=== PATIENT | male | born 1995 | race African-American/Black ===

== ENCOUNTER 2019-12-14 08:17 | Day surgery (SDC) | payer OTHER ==
[~2019-12-14] VITALS: Ht 170.2 cm; Wt 70.8 kg
[2019-12-14 08:24] VITALS: BP 140/67
[2019-12-14] MEDS ORDERED: DEXT 5% / NACL 0.9% 500 ML IV ONE (08:45)
--- NOTE | 2019-12-14 08:51 | NUR ---
PT CHECK IN FOR PREOP FOR ABSCESS ON BILATERAL AXILLA TO BE DONE BY DR SAUCEDO TODAY AT 1030. PT C/O BL AXILLARY PAIN 04/13
[2019-12-14 09:29] LABS: ANION GAP 19.5 (8-16); CARBON DIOXIDE 21.2 mmol/L (21-32); CREATININE 0.9 mg/dL (0.6-1.3); POTASSIUM 4.7 mmol/L (3.5-5.1)
[2019-12-14 09:38] LABS: BASOPHILS % (AUTO) 0.2 % (0.0-2.0); EOSINOPHILS % (AUTO) 0.2 % (0.0-4.0); HEMATOCRIT 43.2 % (36-52); HEMOGLOBIN 13.7 g/dL (12.0-18.0); LYMPHOCYTES # (AUTO) 1.8 K/uL (2.0-11.5); LYMPHOCYTES % (AUTO) 10.3 % (20.5-51.1); MEAN CORPUSCULAR HEMOGLOBIN 25 pg (27-31); MEAN CORPUSCULAR HGB CONC 32 g/dL (33-37); MEAN CORPUSCULAR VOLUME 77.2 fL (80-94); MONOCYTES # (AUTO) 1.1 K/uL (0.8-1.0); MONOCYTES % (AUTO) 6.2 % (1.7-9.3); NEUTROPHILS # (AUTO) 14.5 K/uL (1.8-7.7); NEUTROPHILS % (AUTO) 83.1 % (42.2-75.2); PLATELET COUNT (AUTO) 432 K/uL (140-450); RED CELL DISTRIBUTION WIDTH 14.3 % (11.6-13.7); WHITE BLOOD COUNT (AUTO) 17.4 K/uL (4.8-10.8)
--- NOTE | 2019-12-14 10:00 | NUR ---
RECEIVED PATIENT FROM ED NURSE VIA WHEELCHAIR. PATIENT AMBULATED TO THE ROOM. AAOX4. RESPIRATIONS EVEN AND UNLABORED, ROOM AIR. VISIBLE CHEST RISE NOTED. NO CHEST PAIN. ABDOMEN FLAT AND NONTENDER. SKIN WARM, DRY, BILAT AXILLARY ABSCESS. PATIENT IS SCHEDULED FOR I&D LATER TODAY. IV IN THE RIGHT AC G20, SALINE LOCK. PATIENT IS AMBULATORY. DENIES PAIN. BED IN LOW POSITION. CALL LIGHT IS WITHIN REACH. WILL CONTINUE TO MONITOR
[2019-12-14 10:04] LABS: PROTHROMBIN TIME 10.6 secs (10.8-13.4)
--- NOTE | 2019-12-14 10:07 | NUR ---
Patient will be admitted to care of Dr SAUCEDO. Admited to [facility] room 105b. Belongings list completed. Report to LARA Servin.
[2019-12-14] MEDS: PIPERACILLIN/TAZOBACTAM 4.5 GM in DEXTROSE 5% 100 ML IV SCH ×3 (12:22→23:30)
--- NOTE | 2019-12-14 12:22 | NUR ---
RAGHU HANNA VIA IVPB. EXPLAINED TO PATIENT MED. PATIENT VERBALIZED UNDERSTANDING. WILL CONTINUE TO MONITOR
[2019-12-14 12:36] VITALS: BP 124/79
--- NOTE | 2019-12-14 12:50 | NUR ---
PATIENT IS OFF UNIT FOR SCHEDULED I&D
[2019-12-14] MEDS ORDERED: BUPIVACAINE-MPF/EPI 0.25% 30 ML VIAL INJ ONE (13:22)
[2019-12-14] MEDS ORDERED: ONDANSETRON 4 MG/2 ML VIAL ONE (13:28)
[2019-12-14] MEDS ORDERED: KETOROLAC 30 MG/ML VIAL ONE (13:28)
[2019-12-14] MEDS ORDERED: PROPOFOL 200 MG/20 ML VIAL IV ONE (13:28)
[2019-12-14] MEDS ORDERED: HYDROmorphone PFS 2 MG/ML SYR ONE (13:28)
[2019-12-14] MEDS ORDERED: HYDROGEN PEROXIDE 3% 240 ML BTL TP ONE (14:09)
--- NOTE | 2019-12-14 15:45 | NUR ---
PATIENT IS BACK FROM OR POST I&D. PATIENT HAS BANDAGES IN BILAT AXILLARY AND BUTTOCKS AREA.
--- NOTE | 2019-12-14 15:47 | NUR ---
OR NURSE GAVE PATIENT WATER BECAUSE PATIENT STATED HE'S SO THIRSTY.
--- NOTE | 2019-12-14 16:10 | NUR ---
PATIENT IS VOMITING CLEAR LIQ. EDUCATED PATIENT TO NOT DRINK ANY MORE WATER. EDUCATED TO STAY UPRIGHT.
--- NOTE | 2019-12-14 16:48 | NUR ---
PATIENT VOMITED CLEAR LIQ 100 ML.
--- NOTE | 2019-12-14 16:50 | NUR ---
CHANGED PATIENT'S GOWN BECAUSE IT GOT WET WHEN HE VOMITED.
--- NOTE | 2019-12-14 18:04 | NUR ---
HANG ZOSYN VIA IVPB. EXPLAINED TO PATIENT MED AND SIDE EFFECTS. PATIENT VERBALIZED UNDERSTANDING. BED IN LOW POSITION. CALL LIGHT WITHIN REACH.
--- NOTE | 2019-12-14 18:07 | NUR ---
PAGED DR. SAUCEDO TO GET AN ORDER FOR ANTI-EMETIC. NO RESPONSE. WILL TRY AGAIN
--- NOTE | 2019-12-14 18:19 | NUR ---
PAGED DR. SAUCEDO. WILL WAIT FOR CALL BACK
[2019-12-14] MEDS ORDERED: ONDANSETRON 4 MG/2 ML VIAL IVP PRN ×2 (18:25)
[2019-12-14] MEDS ORDERED: ACETAMINOPHEN 325 MG TAB PO PRN (18:25)
[2019-12-14] MEDS ORDERED: MORPHINE SULFATE 2 MG/ML SYR IVP PRN (18:25)
[2019-12-14] MEDS ORDERED: HYDROmorphone 1 MG/ML AMP IVP PRN (18:25)
[2019-12-14] MEDS ORDERED: HYDROcodone/APAP 5/325 MG 1 TAB TAB PO PRN (18:25)
[2019-12-14] MEDS ORDERED: MORPHINE SULFATE 4 MG/ML SYR IV PRN (18:25)
--- NOTE | 2019-12-14 18:27 | NUR ---
DR. SAUCEDO MADE A TELEPHONE ORDER FOR ZOFRAN 4MG Q6H FOR N/V.
--- NOTE | 2019-12-14 18:46 | NUR ---
GIVEN ZOFRAN VIA IVPB. EXPLAINED TO PATIENT MED AND SIDE EFFECTS. PATIENT VERBALIZED UNDERSTANDING. BED IN LOW POSTION. CALL LIGHT IS WITHIN REACH.
--- NOTE | 2019-12-14 19:17 | NUR ---
ENDORSED PATIENT TO PERSONAL ASSISTANT NURSE CONTINUITY OF CARE. PATIENT IS STABLE CONDITION.
--- NOTE | 2019-12-14 19:30 | NUR ---
RECEIVED PATIENT AWAKE AND ALERT IN BED. NO C/O NAUSEA OR PAIN AT THIS TIME. DRESSING NOTED TO BILATERAL AXILLA. NO BLEEDING NOTED AT THIS TIME. BED LOWERED WITH CALL LIGHT WITHIN REACH. WILL CONTINUE TO MONITOR
[2019-12-15] VITALS: BP 121/73
--- NOTE | 2019-12-15 00:33 | NUR ---
PATIENT ASLEEP IN BED AT THIS TIME. NO S/S OF DISTRESS NOTED
[2019-12-15] MEDS: PIPERACILLIN/TAZOBACTAM 4.5 GM in DEXTROSE 5% 100 ML IV SCH ×3 (05:10→18:14)
--- NOTE | 2019-12-15 07:15 | NUR ---
RECEIVED REPORT FROM NUCLEAR SCIENTIST NURSE AT BEDSIDE FOR CONTINUITY OF CARE. PATIENT AWAKE AND ALERT, RESPIRATIONS EVEN AND UNLABORED ON ROOM AIR, PATIENT LAST MEDICATED FOR PAIN At 0630. UPDATED BOARD. UPDATED PATIENT WITH PLAN OF CARE. HE VERBALIZED UNDERSTANDING. IV SITE INTACT, PATENT, ASYMPTOMATIC, INFUSING IVF WELL. DRESSING ON BILATERAL AXILLARY INTACT, DRY AND CLEAN. CALL LIGHT WITHIN REACH, WILL CONTINUE TO MONITOR PATIENT.
[2019-12-15 08:00] VITALS: BP 133/71
--- NOTE | 2019-12-15 08:45 | NUR ---
PATIENT FINISHED WITH BREAKFAST. PATIENT HAD QUESTIONS ABOUT DISCHARGE AND INQUIRE ABOUT POSSIBILITY OF HOME HEALTH. WILL FORWARD PATIENTS CONCERN TO CASE MANAGEMENT.
[2019-12-15 12:02] LABS: BASOPHILS % (AUTO) 0.1 % (0.0-2.0); EOSINOPHILS % (AUTO) 0.1 % (0.0-4.0); HEMATOCRIT 35.9 % (36-52); HEMOGLOBIN 11.5 g/dL (12.0-18.0); LYMPHOCYTES # (AUTO) 0.4 K/uL (2.0-11.5); LYMPHOCYTES % (AUTO) 2.4 % (20.5-51.1); MEAN CORPUSCULAR HEMOGLOBIN 24 pg (27-31); MEAN CORPUSCULAR HGB CONC 32 g/dL (33-37); MEAN CORPUSCULAR VOLUME 76.2 fL (80-94); MONOCYTES # (AUTO) 1.2 K/uL (0.8-1.0); NEUTROPHILS # (AUTO) 15.5 K/uL (1.8-7.7); NEUTROPHILS % (AUTO) 90.4 % (42.2-75.2); PLATELET COUNT (AUTO) 350 K/uL (140-450); RED BLOOD CELL COUNT(AUTO) 4.71 MIL/uL (4.20-6.10); RED CELL DISTRIBUTION WIDTH 14.2 % (11.6-13.7); WHITE BLOOD COUNT (AUTO) 17.1 K/uL (4.8-10.8)
--- NOTE | 2019-12-15 13:54 | NUR ---
WOUND CARE GIVEN ORDERED BY DR. SAUCEDO. BERTOID PRN GIVEN TO PATIENT FOR WOUND CARE. PATIENT TOLERATING IT.
--- NOTE | 2019-12-15 14:42 | NUR ---
DISCHARGE PLANNING: RECEIVED AN ORDER FOR HOME HEALTH FOR WOUND CARE. MET WITH THE PATIENT AT THE BEDSIDE TO DISCUSS DC PLANNING AND IS IN AGREEMENT. RADHAMES OF [facility] MADE AWARE. SHE STATED SHE WILL CALL ME BACK FOR AN AUTH. REFERRAL SENT TO [facility]. Addendum: 12/15/19 at 1454 by Cinthia Mckee CM REFERRAL SENT TO [facility] Addendum: 12/15/19 at 1533 by Cinthia Mckee PER MARTY OF [facility] THEY ARE NOT ABLE TO ACCEPT THE PATIENT BECAUSE THEY DO NOT HAVE THE NURSE WHO GOES TO THE PATIENT'S ADDRESS. PER JOVON OF [facility], THEY ARE ABLE TO TAKE THE PATIENT. RADHAMES CORRALES [facility] MADE AWARE. PRIMARY RN MADE AWARE. Addendum: 12/15/19 at 1538 by Cinthia Mckee CM PATIENT MADE AWARE AND IS IN AGREEMENT.
--- NOTE | 2019-12-15 15:14 | NUR ---
PATIENT HAS BEEN SCREENED AND CATEGORIZED LOW NUTRITION RISK. PATIENT WILL BE SEEN WITHIN 7 DAYS OF ADMISSION. 12/21/[address]
--- NOTE | 2019-12-15 15:40 | NUR ---
Paged Dr. Garcia to inquire about pain medication for patient after discharge. Waiting for his call back. Call Patient's father Merlin Figueroa II at [phone] to inform him about patient's pending discharge. Will call back to update him about discharge time. He verbalized understanding. Patient aware.
[2019-12-15 16:00] VITALS: BP 130/79
--- NOTE | 2019-12-15 16:46 | NUR ---
PAGED DR SAUCEDO TO FOLLOW UP WITH LAST PHONE CALL ABOUT PATIENT'S POSSIBLE PRESCRIPTION. WILL WAIT FOR HIS CALL BACK.
--- NOTE | 2019-12-15 17:05 | NUR ---
CALLED DR. SAUCEDO [phone]. LEFT VOICEMAIL, WAITING FOR HIS CALL BACK.
--- NOTE | 2019-12-15 18:30 | NUR ---
PATIENT REFUSED FLU VACCINE. EDUCATED PATIENT ABOUT BENEFITS, HE REITERATE HIS REFUSAL.
--- NOTE | 2019-12-15 19:00 | NUR ---
DR SAUCEDO ON THE FLOOR, PRESCRIPTION FOR PAIN AND ANTIBIOTICS GIVEN. PATIENT AWARE.
[2019-12-15] MEDS ORDERED: ACET-5629 PO (19:02)
[2019-12-15] MEDS ORDERED: CIPR500T4 PO (19:04)
--- NOTE | 2019-12-15 19:05 | NUR ---
DISCHARGE INSTRUCTION AND EDUCATION GIVEN TO PATIENT. PATIENT VERBALIZED UNDERSTANDING ABOUT HOME HEALTH RN VISITATION FOR WOUND CARE. PATIENT VERBALIZED UNDERSTANDING ABOUT PAIN MEDICATIONS AND ANTIBIOTICS AND WILL TAKE ALL MEDICATIONS PRESCRIBED. PATIENT INFORMED TO FOLLOW UP WITH PCP AND DR. SAUCEDO, WILL CALL FOR APPOINTMENT. FATHER AT BEDSIDE. PATIENT STILL CURRENTLY RECEIVING IV ANTIBIOTICS, WILL BE DISCHARGE AFTER ANTIBIOTICS FINISHES. WILL ENDORSE TO PRE BILLING SPECIALIST NURSE.
--- NOTE | 2019-12-15 19:05 | NUR ---
RECEIVED BEDSIDE REPORT FROM DAY SHIFT NURSE. PATIENT IS AWAKE, ALERT, AND COOPERATIVE. RESPIRATION EVEN UNLABORED ON ROOM AIR. FAMILY MEMBER AT BEDSIDE. SKIN IS WARM AND DRY. IV PATENT AND INTACT. PLAN OF CARE WAS DISCUSSED. ALL SAFETY MEASURES IN PLACE. BED IS AT LOW POSITION. CALL LIGHT WITHIN REACH AND VERBALIZES ITS USE. WILL CONTINUE TO MONITOR.
--- NOTE | 2019-12-15 19:30 | NUR ---
REPORT GIVEN TO HANDBAG OPERATOR NURSE AT BEDSIDE FOR CONTINUITY OF CARE. ENDORSED DISCHARGE TO HANDBAG OPERATOR RN. PATIENT IN STABLE CONDITION. FATHER AT BEDSIDE.
--- NOTE | 2019-12-15 20:15 | NUR ---
PROVIDED PATIENT WOUND CARE SUPPLIES AND EDUCATED ON HOW TO DO DRESSING CHANGE. PATIENT VERBALIZES UNDERSTANDING. WILL CONTINUE TO MONITOR.
--- NOTE | 2019-12-15 20:30 | NUR ---
ALL PAPER WORKS WAS SIGNED. AWAITING FOR THE IV ANTIBIOTIC TO BE DONE. WILL CONTINUE TO MONITOR
--- NOTE | 2019-12-15 20:45 | NUR ---
EDUCATED PT ON DISEASE PROCESS, MEDICATION, SIGN AND SYMPTOMS, AND WHEN TO GO TO ER. EDUCATED ON THE IMPORTANCE TO FOLLOW UP WITH PCP. REMOVED IV.
--- NOTE | 2019-12-15 20:55 | NUR ---
PATIENT LEFT THE FACILITY IN STABLE CONDITION WITH A FAMILY MEMBER HEADING TO HOME.
== END 2019-12-15 20:55 | disposition home or self-care (01) ==
LOC: MED 08:17 → MDS 09:08 → MTU 09:08 → MDS 12-15 20:55
PROVIDERS: ATTEND Surgery
DX: L73.2 Hidradenitis suppurativa (principal); L02.412 Cutaneous abscess of left axilla; L02.411 Cutaneous abscess of right axilla; E11.9 Type 2 diabetes mellitus without complications; Z79.01 Long term (current) use of anticoagulants; L72.0 Epidermal cyst
CPT/HCPCS: 11450; 36415; 80048; 85025; 85610; 86886; 86900; 86901; 87070; 87081; 87186; 88304; 93005; J1170; J1885; J2270; J2405; J2543; J2704; J3490; J7030; J7060; 87075; 87205

== ENCOUNTER 2019-12-16 19:15 | Emergency (ER) | payer OTHER ==
[~2019-12-16] VITALS: Ht 170.2 cm; Wt 72.6 kg
[~2019-12-16 19:15] MED LIST: ACET-5629 PO; CIPR500T4 PO
[2019-12-16 19:25] VITALS: BP 112/73
--- NOTE | 2019-12-16 21:17 | NUR ---
PT TAKEN TO BED 9
--- NOTE | 2019-12-16 21:42 | NUR ---
PT BIB SELF FOR WOUND CHECK. PT WAS D/C'S FROM [facility] YESTERDAY, PT HAS SURGICAL WOUNDS TO LT AND RT AXILARY FOR REMOVAL OF INFECTION. PT STATES HE NEEDS WOUNDS PACKED Q24 HOURS, HOME HEALTH NURSE UNABLE TO MAKE IT TO HIS HOUSE EVERYDAY.
--- NOTE | 2019-12-16 21:51 | NUR ---
PA SARAHI WITH PT
--- NOTE | 2019-12-16 22:35 | NUR ---
WALTER MCCLAIN PERFORMING WOUND CARE AT THIS TIME WITH ASSISTANCE FROM LIZBETH PITTMAN
[2019-12-16 22:56] VITALS: BP 112/73
--- NOTE | 2019-12-16 22:56 | NUR ---
Patient discharged with v/s stable. PT LEFT WITHOUT D/C INSTRUCTIONS
== END 2019-12-16 22:56 | disposition home or self-care (01) ==
LOC: MED 19:15
DX: Z48.00 Encounter for change or removal of nonsurgical wound dressing (principal); E11.9 Type 2 diabetes mellitus without complications; F12.10 Cannabis abuse, uncomplicated; Z79.899 Other long term (current) drug therapy
CPT/HCPCS: 99281

== ENCOUNTER 2019-12-17 21:06 | Emergency (ER) | payer OTHER ==
[~2019-12-17] VITALS: Ht 170.2 cm; Wt 71.7 kg
--- NOTE | 2019-12-17 21:09 | NUR ---
Luda osborne in [facility] - 12/17/19 at 2112 by JOSELIN PT TAKEN TO BED 7
[2019-12-17 21:15] VITALS: BP 135/79
--- NOTE | 2019-12-17 21:22 | NUR ---
PT AMBULATED OT LOBBY TO A/W BED
--- NOTE | 2019-12-17 21:23 | NUR ---
PT TAKEN TO BED 5
--- NOTE | 2019-12-17 21:25 | NUR ---
Note undone in EDM - 12/17/19 at 2216 by [facility] PT 24 Y/O MALE BIB SELF FOR C/O L AND R ARMPIT PAIN 08/13. PT STATES HE HAD CYSTS THAT WERE DRAINED IN BOTH ARMPITS ON SATURDAY. PT BANDAGES STILL IN PLACE. PT NOTED WITH PURLUENT DRAINAGE AND SEROUSANGUINEOUS FLUID COMING FROM R ARMPIT. EDAMA NOTED. NO FOUL ODOR NOTED AT THIS TIME. L ARMPIT BANDAGE STILL IN PLACE. RESPIRATIONS ARE EVEN AND UNLABORED. AFEBRILE. DENIES COUGH. DENIES N/V/D. PT RECENTLY DIAGNOSED WITH DM TYPE II X 2 WEEKS AGO AND CURRENTLY NOT TAKING ANY MEDICATION. PER PT HIS PRIMARY IS BEGINNING WITH DIET CHANGE BEFORE PRESCRIBING MEDICATIONS. MEDHX: DM TYPE II ALLERGIES: NONE
--- NOTE | 2019-12-17 22:20 | NUR ---
WALTER MCCLAIN AT BEDSIDE PERFORMING WOUND CARE.
[2019-12-17 23:07] VITALS: BP 135/79
--- NOTE | 2019-12-17 23:07 | NUR ---
Patient discharged with v/s stable. Written and verbal after care instructions given and explained. Patient verbalized understanding. Ambulatory with steady gait. All questions addressed prior to discharge. Advised to follow up with PMD.
== END 2019-12-17 23:07 | disposition home or self-care (01) ==
LOC: MED 21:06
DX: L73.2 Hidradenitis suppurativa (principal); E11.9 Type 2 diabetes mellitus without complications; F12.90 Cannabis use, unspecified, uncomplicated; Z98.890 Other specified postprocedural states; Z79.899 Other long term (current) drug therapy; Z48.01 Encounter for change or removal of surgical wound dressing
CPT/HCPCS: 99283

== ENCOUNTER 2019-12-19 18:58 | Emergency (ER) | payer OTHER ==
[~2019-12-19] VITALS: Ht 170.2 cm; Wt 72.6 kg
[2019-12-19 19:09] VITALS: BP 121/58
--- NOTE | 2019-12-19 19:15 | NUR ---
PT AMBULATORY TO BED 9.
--- NOTE | 2019-12-19 19:30 | NUR ---
PT C/O PAIN UNDER BILATERAL ARMPITS. PT STATES HAVING SURGERY ON SATURDAY. PT DOES NOT KNOW NAME OF SURGERY OR REASON FOR SURGERY. PT STATES HAVING A WOUND CARE NURSE THAT COMES TO HIS HOUSE EVERY DAY TO CHANGE THE DRESSING. TODAY THE WOUND CARE NURSE DID NOT COME AND HE IS HERE FOR DRESSING CHANGE. PT IS HAVING PURULENT DRAINAGE OUT OF LEFT SIDE INCISION AND FOUL SMELLING ODOR. PT HAVING SEROSANGUIEOUS DRAINAGE OUT OF RIGHT SIDE INCISION. PT DOES NOT KNOW TYPE OF ANTIBIOTICS HE IS TAKING. DENIES N/V/D; SKIN IS PINK/WARM/DRY; AAOX4 WITH EVEN AND STEADY GAIT; LUNGS CLEAR BL; HR EVEN AND REGULAR; PT DENIES ANY FEVER, CP, SOB, OR COUGH AT THIS TIME; PATIENT STATES PAIN OF 3/10 AT THIS TIME; VSS; PATIENT POSITIONED FOR COMFORT; HOB ELEVATED; BEDRAILS UP X1; BED DOWN. ER MD MADE AWARE OF PT STATUS.
--- NOTE | 2019-12-19 19:35 | NUR ---
PT WOUND ON L ARMPIT IRRIGATED WITH NORMAL SALINE TO HELP REMOVE GAUZE, PT UNABLE TO TOLERATE. RN NOTIFIED AND IRRIGATION STOPPED
--- NOTE | 2019-12-19 20:12 | NUR ---
LOOKED THROUGH PT CHART, PT TAKING CIPRO 500MG AND PERCOCET.
[2019-12-19] MEDS ORDERED: MORPHINE SULFATE 4 MG/ML SYR IM ONE (21:15)
--- NOTE | 2019-12-19 22:14 | NUR ---
PT WOUND PACKED WITH NON-ADHERANT DRESSING AND ABD BADAGE OVER. NO CHANGES FROM PREVIOUS ASSESSMENT.Patient discharged with v/s stable. Written and verbal after care instructions given and explained. Patient verbalized understanding. Ambulatory with steady gait. All questions addressed prior to discharge. Advised to follow up with PMD.
[2019-12-19 22:16] VITALS: BP 124/68
== END 2019-12-19 22:14 | disposition home or self-care (01) ==
LOC: MED 18:58
DX: L73.2 Hidradenitis suppurativa (principal); E11.9 Type 2 diabetes mellitus without complications; Z79.899 Other long term (current) drug therapy; Z48.00 Encounter for change or removal of nonsurgical wound dressing; Z98.890 Other specified postprocedural states
CPT/HCPCS: 96372; 99283; J2270

== ENCOUNTER 2020-01-05 08:27 | Inpatient (IN) | payer OTHER ==
[~2020-01-05] VITALS: Ht 170.2 cm; Wt 72.6 kg
--- NOTE | 2020-01-05 08:35 | NUR ---
PT AMBULATED TO ER BED 2
[2020-01-05 08:37] VITALS: BP 144/63
--- NOTE | 2020-01-05 08:42 | NUR ---
SEEN BY YESTERDAY IN CLINIC. INSTRUCTED TO COME TO ER FOR DRAIANGE--RIGHT AXILLA "PUS POCKET". HX--DM, HIDRADEMITIS SUPPURATIVA. PATIENT STATES PAIN OF 9/10 AT THIS TIME. PATIENT POSITIONED FOR COMFORT; HOB ELEVATED; BEDRAILS UP X1; BED DOWN. ER MD MADE AWARE OF PT STATUS.
[2020-01-05] MEDS ORDERED: traMADol 50 MG TAB PO ONE (09:15)
[2020-01-05] MEDS ORDERED: IBUPROFEN 800 MG TAB PO ONE (09:15)
[2020-01-05] MEDS ORDERED: NACL 0.9% 1,000 ML IV SCH ×2 (09:31→16:02)
[2020-01-05] MEDS ORDERED: PIPERACILLIN/TAZOBACTAM 3.375 GM in DEXT 5% MINI-BAG PLUS 50 ML IV ONE (09:35)
--- NOTE | 2020-01-05 09:44 | NUR ---
X RAY AT BEDSIDE
[2020-01-05] MEDS ORDERED: PIPERACILLIN/TAZOBACTAM 3.375 GM VIAL IV ONE (09:45)
[2020-01-05 09:50] LABS: BASOPHILS % (AUTO) 0.4 % (0.0-2.0); EOSINOPHILS % (AUTO) 0.4 % (0.0-4.0); HEMATOCRIT 37.4 % (36-52); HEMOGLOBIN 12.4 g/dL (12.0-18.0); LYMPHOCYTES # (AUTO) 1.5 K/uL (2.0-11.5); LYMPHOCYTES % (AUTO) 14.9 % (20.5-51.1); MEAN CORPUSCULAR HEMOGLOBIN 25 pg (27-31); MEAN CORPUSCULAR HGB CONC 33 g/dL (33-37); MEAN CORPUSCULAR VOLUME 74.7 fL (80-94); MONOCYTES # (AUTO) 0.7 K/uL (0.8-1.0); MONOCYTES % (AUTO) 6.7 % (1.7-9.3); NEUTROPHILS # (AUTO) 7.9 K/uL (1.8-7.7); NEUTROPHILS % (AUTO) 77.6 % (42.2-75.2); PLATELET COUNT (AUTO) 325 K/uL (140-450); RED CELL DISTRIBUTION WIDTH 14.7 % (11.6-13.7); WHITE BLOOD COUNT (AUTO) 10.2 K/uL (4.8-10.8)
--- NOTE | 2020-01-05 10:03 | NUR ---
PATIENT CAN'T PROVIDE URINE AT THIS TIME. Addendum: 01/05/20 at 1004 by MED1 WOUND C/S DONE.
--- NOTE | 2020-01-05 10:21 | NUR ---
PT REFUSED TO PROVIDE URINE AT THIS TIME.
[2020-01-05 10:31] LABS: CARBON DIOXIDE 25.5 mmol/L (21-32); CREATININE 0.9 mg/dL (0.6-1.3); POTASSIUM 3.5 mmol/L (3.5-5.1); PROTHROMBIN TIME 10.4 secs (10.8-13.4); TOTAL BILIRUBIN 0.6 mg/dL (0.0-1.0)
[2020-01-05] MEDS ORDERED: DEXT 5% / NACL 0.45% 1,000 ML IV SCH (10:49)
[2020-01-05] MEDS ORDERED: HYDROcodone/APAP 5/325 MG 1 TAB TAB PO PRN (10:50)
[2020-01-05] MEDS ORDERED: INSULIN LISPRO SLIDING SCALE 100 UNITS/ML VIAL SUBQ PRN (10:50)
[2020-01-05] MEDS ORDERED: ONDANSETRON 4 MG/2 ML VIAL IVP PRN ×2 (10:50→16:05)
[2020-01-05] MEDS ORDERED: MORPHINE SULFATE 4 MG/ML SYR IVP PRN (10:50)
[2020-01-05] MEDS ORDERED: DEXTROSE 50% 50 ML SYR IVP PRN (10:50)
--- NOTE | 2020-01-05 10:56 | NUR ---
APPLIED NONADHERENT DRESSING TO RIGHT AXILLARY WITHOUT ANY ISSUES
--- NOTE | 2020-01-05 11:20 | NUR ---
Patient will be admitted to care of DR SOLOMON. Admited to MS. Will go to room 120 B. Belongings list completed. Report to MARGARITA BERMUDEZ.
[2020-01-05 11:28] VITALS: BP 133/66
--- NOTE | 2020-01-05 11:28 | NUR ---
RECEIVED PT FROM ER, INTRODUCE PT TO THE ROOM, INTRODUCE SELF, UPDATE WHITE BOARD, PT HAS LAC INFUSING D51/2NS AT 75ML, PT HAS LEFT AND RIGHT AXILLA WOUNDS, DRESSING IN PLACE, SAFETY MEASURES IN PLACE, WILL CONTINUE TO MONITOR.
[2020-01-05] MEDS: BLOOD GLUCOSE MONITORING 1 DEV DEV FS SCH ×2 (11:30→16:30)
--- NOTE | 2020-01-05 11:30 | NUR ---
PT REFUSED ACCUCHECKS, EXPLAINED TO PT THE NEED TO CHECK BLOOD SUGAR, PT REFUSED AND VERBALIZED UNDERSTANDING, PT IS STABLE.
[2020-01-05 14:02] LABS: APPEARANCE,URINE CLEAR (CLEAR); BILIRUBIN,URINE NEGATIVE (NEGATIVE); BLOOD, URINE NEGATIVE (NEGATIVE); COLOR,URINE YELLOW (YELLOW); LEUKOCYTE ESTERASE ,URINE NEGATIVE (NEGATIVE); NITRITE, URINE NEGATIVE (NEGATIVE); PH,URINE 5.5 (5.0-9.0); UGLUCOSE NEGATIVE (NEGATIVE)
[2020-01-05] MEDS ORDERED: BUPIVACAINE-MPF/EPI 0.25% 30 ML VIAL INJ ONE (14:42)
[2020-01-05] MEDS ORDERED: HYDROGEN PEROXIDE 3% 240 ML BTL TP ONE (15:30)
[2020-01-05] MEDS ORDERED: METOCLOPRAMIDE 10 MG/2 ML INJ VIAL ONE (15:50)
[2020-01-05] MEDS ORDERED: fentaNYL 0.05 MG/ML VIAL ONE (15:50)
[2020-01-05] MEDS ORDERED: LIDOCAINE 2% 100 MG/5 ML SYR IVP ONE (15:50)
[2020-01-05] MEDS ORDERED: SEVOFLURANE 250 ML BTL INH ONE (15:50)
[2020-01-05] MEDS ORDERED: ONDANSETRON 4 MG/2 ML VIAL ONE (15:50)
[2020-01-05] MEDS ORDERED: ceFAZolin 1,000 MG VIAL ONE (15:50)
[2020-01-05] MEDS ORDERED: GLYCOPYRROLATE 0.2 MG/ML VIAL ONE (15:50)
[2020-01-05] MEDS ORDERED: PROPOFOL 200 MG/20 ML VIAL IV ONE (15:50)
[2020-01-05] MEDS ORDERED: MIDAZOLAM 2 MG/2 ML VIAL ONE (15:50)
[2020-01-05 16:00] VITALS: BP 110/70
--- NOTE | 2020-01-05 16:00 | NUR ---
PT BACK FROM OR, PT STABLE, WILL CONTINUE TO MONITOR VITAL SIGNS,
[2020-01-05] MEDS ORDERED: MEPERIDINE 25 MG/ML SYR IVP PRN (16:05)
[2020-01-05] MEDS ORDERED: HYDROmorphone 1 MG/ML AMP IVP PRN (16:05)
[2020-01-05] MEDS ORDERED: diphenhydrAMINE 50 MG/ML VIAL IVP PRN (16:05)
--- NOTE | 2020-01-05 16:30 | NUR ---
PT REFUSED BLOOD SUGAR CHECKS, PT STATES HE HAS NOT HAD FOOD, SO HE DOES NOT NEED TO BE CHECK, EDUCATION GIVEN, PT VERBALIZED UNDERSTANDING, PT IS STABLE, CALL LIGHT WITHIN REACH.
--- NOTE | 2020-01-05 19:14 | NUR ---
GAVE REPORT TO NIGHT NURSE FOR CONTINUITY OF CARE, PT IS STABLE
--- NOTE | 2020-01-05 19:15 | NUR ---
RECEIVED BEDSIDE REPORT FROM DAY SHIFT NURSE MARGARITA RN, PT STABLE, NO DISTRESS NOTED, IV TO L AC 20G PATENT INTACT, INFUSING WELL, PT ON ROOM AIR , NO SOB NOTED, CALL LIGHT WITHIN REACH, PT AWAITING LOAN REVIEW OFFICER BY FATHER. WILL CONTINUE TO MONITOR.
--- NOTE | 2020-01-05 19:20 | NUR ---
PT LEFT UNIT IN STABLE CONDITION NO DISTRESS NOTED, ACCOMPANIED BY FATHER, ALL DC PAPER SIGNED, IV TAKEN OUT.
[2020-01-05] MEDS ORDERED: PIPERACILLIN/TAZOBACTAM 2.25 GM in DEXTROSE 5% 50 ML IV SCH (21:00)
== END 2020-01-05 19:25 | disposition home or self-care (01) | DRG 385 ==
LOC: MED 08:27 → MTU 10:51
PROVIDERS: ADMIT Internal Medicine; ATTEND Internal Medicine
PROC: 0JBD0ZZ Excision of Right Upper Arm Subcutaneous Tissue and Fascia, Open Approach (ICD-10-PCS; principal; 2020-01-05 15:00)
DX: L73.2 Hidradenitis suppurativa (principal); E11.9 Type 2 diabetes mellitus without complications; L02.411 Cutaneous abscess of right axilla; Z79.899 Other long term (current) drug therapy; Z82.49 Family history of ischemic heart disease and other diseases of the circulatory system; Z83.3 Family history of diabetes mellitus
CPT/HCPCS: 36415; 71045; 80053; 81003; 83605; 85025; 85610; 85730; 87040; 87070; 87075; 87186; 87205; 88304; 96365; 99285; J0690; J1815; J2001; J2250; J2405; J2543; J2704; J2765; J3010; J3490; J7060; Q0092

== ENCOUNTER 2020-03-21 09:35 | Day surgery (SDC) | payer OTHER, SELFPAY ==
[~2020-03-21] VITALS: Ht 170.2 cm; Wt 72.6 kg
[~2020-03-21 09:35] MED LIST changes: +BUPIVACAINE-MPF 0.25% 30 ML VIAL INJ ONE; +HYDROGEN PEROXIDE 3% 240 ML BTL TP ONE; +LIDOCAINE 1% 500 MG/50 ML VIAL ONE
[2020-03-21] MEDS ORDERED: BUPIVACAINE-MPF 0.25% 30 ML VIAL INJ ONE (09:54)
[2020-03-21] MEDS ORDERED: LIDOCAINE 1% 500 MG/50 ML VIAL ONE (09:54)
[2020-03-21] MEDS ORDERED: HYDROGEN PEROXIDE 3% 240 ML BTL TP ONE (09:54)
[2020-03-21] MEDS ORDERED: PROPOFOL 200 MG/20 ML VIAL IV ONE (11:04)
[2020-03-21] MEDS ORDERED: ONDANSETRON 4 MG/2 ML VIAL ONE (11:04)
[2020-03-21] MEDS ORDERED: KETOROLAC 30 MG/ML VIAL ONE (11:04)
[2020-03-21] MEDS ORDERED: LIDOCAINE 2% 100 MG/5 ML SYR IVP ONE (11:04)
[2020-03-21] MEDS ORDERED: ceFAZolin 1,000 MG VIAL ONE (11:04)
[2020-03-21] MEDS ORDERED: SEVOFLURANE 250 ML BTL INH ONE (11:04)
[2020-03-21] MEDS ORDERED: LACTATED RINGERS 1,000 ML IV SCH (11:39)
[2020-03-21] MEDS ORDERED: ONDANSETRON 4 MG/2 ML VIAL IVP PRN (11:40)
[2020-03-21] MEDS ORDERED: MEPERIDINE 25 MG/ML SYR IVP PRN (11:40)
[2020-03-21] MEDS ORDERED: HYDROmorphone PFS 2 MG/ML SYR ONE (12:27)
[2020-03-21] MEDS: HYDROmorphone 1 MG/ML AMP IVP PRN ×2 (12:30→12:40)
== END 2020-03-21 13:20 | disposition home or self-care (01) ==
LOC: MMU 09:35 → MDS 09:35
PROVIDERS: ATTEND Surgery
DX: L73.2 Hidradenitis suppurativa (principal); E11.9 Type 2 diabetes mellitus without complications
CPT/HCPCS: 10061; 36415; 87635; J1170; J2001; J3490; J7030; J0690; J1885; J2405; J2704

== ENCOUNTER 2020-05-09 08:55 | Inpatient (IN) | payer OTHER, SELFPAY ==
[~2020-05-09] VITALS: Ht 170.2 cm; Wt 63.5 kg
[~2020-05-09 08:55] MED LIST changes: -BUPIVACAINE-MPF 0.25% 30 ML VIAL INJ ONE; -HYDROGEN PEROXIDE 3% 240 ML BTL TP ONE; -LIDOCAINE 1% 500 MG/50 ML VIAL ONE
[2020-05-09] MEDS ORDERED: SEVOFLURANE 250 ML BTL INH ONE (11:21)
[2020-05-09] MEDS ORDERED: PROPOFOL 200 MG/20 ML VIAL IV ONE (11:21)
[2020-05-09] MEDS ORDERED: ONDANSETRON 4 MG/2 ML VIAL ONE ×2 (11:21)
[2020-05-09] MEDS ORDERED: fentaNYL citrate 0.05 MG/ML - 50mL vial IV ONE (11:21)
[2020-05-09] MEDS ORDERED: MIDAZOLAM 2 MG/2 ML VIAL ONE (11:21)
[2020-05-09] MEDS ORDERED: DEXAMETHASONE 4 MG/ML VIAL ONE (11:21)
[2020-05-09] MEDS ORDERED: LIDOCAINE 1% 500 MG/50 ML VIAL ONE (11:23)
[2020-05-09] MEDS ORDERED: LACTATED RINGERS 1,000 ML IV SCH (11:57)
[2020-05-09] MEDS ORDERED: HYDROGEN PEROXIDE 3% 240 ML BTL TP ONE (11:57)
[2020-05-09] MEDS ORDERED: HYDROmorphone 1 MG/ML AMP IVP PRN ×2 (12:00→12:20)
[2020-05-09] MEDS ORDERED: MEPERIDINE 25 MG/ML SYR IVP PRN (12:00)
[2020-05-09] MEDS ORDERED: ONDANSETRON 4 MG/2 ML VIAL IVP PRN (12:00)
[2020-05-09] MEDS ORDERED: MORPHINE SULFATE 2 MG/ML SYR IVP PRN (12:20)
[2020-05-09] MEDS ORDERED: ONDANSETRON 4 MG/2 ML VIAL IV PRN (12:20)
[2020-05-09] MEDS ORDERED: ACETAMINOPHEN 325 MG TAB PO PRN (12:20)
[2020-05-09] MEDS ORDERED: HYDROcodone/APAP 5/325 MG 1 TAB TAB PO PRN (12:20)
[2020-05-09] MEDS: HYDROmorphone PFS 2 MG/ML SYR ONE ×4 (12:25→12:57)
[2020-05-09 17:30] VITALS: BP 150/60
[2020-05-09] MEDS: MORPHINE SULFATE 4 MG/ML SYR IV PRN (23:14)
[2020-05-09] MEDS: DEXT 5% /NACL 0.9% 1,000 ML IV SCH (23:29)
[2020-05-10 01:03] VITALS: BP 123/63
[2020-05-10 08:00] VITALS: BP 109/67
[2020-05-10] MEDS: DEXT 5% /NACL 0.9% 1,000 ML IV SCH (08:20)
[2020-05-10] MEDS: MORPHINE SULFATE 4 MG/ML SYR IV PRN (11:38)
[2020-05-10 16:00] VITALS: BP 108/70
[2020-05-10 17:18] VITALS: BP 108/70
== END 2020-05-10 12:29 | disposition home health service (06) | DRG 385 ==
LOC: MMU 08:55 → MDS 08:55 → MTU 12:20 → MDS 05-10 18:40
PROVIDERS: ADMIT Surgery; ATTEND Surgery
PROC: 0JBF0ZZ Excision of Left Upper Arm Subcutaneous Tissue and Fascia, Open Approach (ICD-10-PCS; principal; 2020-05-09 11:00)
DX: L73.2 Hidradenitis suppurativa (principal); L92.8 Other granulomatous disorders of the skin and subcutaneous tissue; Z20.828 Contact with and (suspected) exposure to other viral communicable diseases; E11.9 Type 2 diabetes mellitus without complications
CPT/HCPCS: 82948; 87081; J0690; J1100; J1170; J2001; J2250; J2270; J2405; J2704; J3010; J7042; J7060; U0003-CS

== ENCOUNTER 2022-01-16 09:12 | Day surgery (SDC) | payer OTHER, SELFPAY ==
[~2022-01-16] VITALS: Ht 170.2 cm; Wt 83.9 kg
[2022-01-16] MEDS ORDERED: BUPIVACAINE-MPF/EPI 0.25% 10 ML VIAL INJ ONE (10:18)
[2022-01-16] MEDS ORDERED: SEVOFLURANE 250 ML BTL INH ONE (11:15)
[2022-01-16] MEDS ORDERED: fentaNYL citrate 0.05 MG/ML VIAL ONE (11:17)
[2022-01-16] MEDS ORDERED: KETAMINE 500 MG/5 ML VIAL ONE (11:17)
[2022-01-16] MEDS ORDERED: MIDAZOLAM 2 MG/2 ML VIAL ONE (11:18)
[2022-01-16] MEDS ORDERED: DEXAMETHASONE 4 MG/ML VIAL ONE (11:52)
[2022-01-16] MEDS ORDERED: ONDANSETRON 4 MG/2 ML VIAL ONE (11:52)
[2022-01-16] MEDS ORDERED: ONDANSETRON 4 MG/2 ML VIAL IV PRN (12:05)
[2022-01-16] MEDS ORDERED: HYDROmorphone 1 MG/ML AMP IVP PRN (12:05)
[2022-01-16] MEDS ORDERED: MORPHINE SULFATE 4 MG/ML SYR IV PRN (12:05)
[2022-01-16] MEDS ORDERED: MORPHINE SULFATE 2 MG/ML SYR IVP PRN (12:05)
[2022-01-16] MEDS ORDERED: HYDROcodone/APAP 5/325 MG 1 TAB TAB PO PRN (12:05)
== END 2022-01-16 14:35 | disposition home or self-care (01) ==
LOC: MDS 09:12 → MMU 09:13 → MDS 14:35
PROVIDERS: ATTEND Surgery
DX: L73.2 Hidradenitis suppurativa (principal); L91.8 Other hypertrophic disorders of the skin; Z79.899 Other long term (current) drug therapy; Z20.822 Contact with and (suspected) exposure to COVID-19
CPT/HCPCS: 11450; 71045; 87426; J0690; J1100; J2250; J2405; J3010; J3490; J7060